=== PATIENT | male | born 2000 | race Caucasian/White ===

== ENCOUNTER 2021-10-24 19:24 | Emergency (ER) | payer BC ==
[~2021-10-24] VITALS: Ht 182.9 cm; Wt 101.6 kg
[2021-10-24 19:24] VITALS: BP 137/74
== END 2021-10-24 20:23 | disposition left against medical advice (07) ==
LOC: M ED 19:24
DX: Z53.21 Procedure and treatment not carried out due to patient leaving prior to being seen by health care provider (principal)